=== PATIENT | male | born 1950 | race Caucasian/White ===

== ENCOUNTER 2017-07-12 09:36 | Day surgery (SDC) | payer MEDICARE, OTHER ==
[2017-07-12] MEDS ORDERED: PROPOFOL 40 ML (12:20)
[2017-07-12] MEDS ORDERED: LIDOCAINE 100 MG SYRINGE (12:20)
== END 2017-07-12 19:03 | disposition home or self-care (01) ==
LOC: GIL 09:36
DX: B37.81 Candidal esophagitis (principal); D12.6 Benign neoplasm of colon, unspecified; K21.9 Gastro-esophageal reflux disease without esophagitis; K29.60 Other gastritis without bleeding; K64.8 Other hemorrhoids; I10 Essential (primary) hypertension; E11.9 Type 2 diabetes mellitus without complications; E78.5 Hyperlipidemia, unspecified
CPT/HCPCS: 43239; 82962; 87081; 88305; 88313